=== PATIENT | female | born 1945 | race Caucasian/White ===

== ENCOUNTER 2016-05-14 04:52 | Day surgery (SDC) | payer OTHER ==
[~2016-05-14 04:52] MED LIST: ALEVE220 MG PO; DITRO5 PO; FISH OIL1200 MG PO; LEVOTHYROXIN75 MCG PO; MELA3 PO; MULTI-VIT HP PO; OSTEO BI-FLEX1 EACH; ULTRAM50 PO; VIACTIV PO; VICODINTAB PO; VITA10; VITAMIN D31000 UNIT PO; VITC500; [UNRECOGNIZED DRUG - OTHER] PO
== END 2016-05-14 09:12 | disposition home or self-care (01) ==
LOC: SDC 04:52
PROVIDERS: Orthopaedic Surgery
PROC: 3E0R3BZ Introduction of Anesthetic Agent into Spinal Canal, Percutaneous Approach (ICD-10-PCS; 2016-05-14)
PROC: 3E0R33Z Introduction of Anti-inflammatory into Spinal Canal, Percutaneous Approach (ICD-10-PCS; principal; 2016-05-14 08:30)
DX: M54.16 Radiculopathy, lumbar region (principal); M54.5 Low back pain; C95.90 Leukemia, unspecified not having achieved remission; D64.9 Anemia, unspecified; R32 Unspecified urinary incontinence; M19.90 Unspecified osteoarthritis, unspecified site; Z79.899 Other long term (current) drug therapy; Z88.8 Allergy status to other drugs, medicaments and biological substances; Z91.040 Latex allergy status; Z79.891 Long term (current) use of opiate analgesic; Z90.89 Acquired absence of other organs; Z90.49 Acquired absence of other specified parts of digestive tract; Z90.710 Acquired absence of both cervix and uterus; Z98.890 Other specified postprocedural states
CPT/HCPCS: J1040; J2250; J3010; Q9967